=== PATIENT | male | born 1975 | race Caucasian/White ===

== ENCOUNTER 2016-10-12 11:39 | Emergency (ER) | payer SELFPAY ==
[~2016-10-12 11:39] MED LIST: ALTOPREV40 MG PO; BACTRIM DS TAB1 EACH PO; CEPHALEXIN500 MG PO; CETIRIZINE HCL10 MG PO; CLINDAMYCIN HC300 MG PO; CYCLOBENZAPRINE10 MG PO; HYDROCODON-ACE1 EA10 PO; LIDODERM700 MG TOP; METOPROLOL SUCC25 MG PO; NIACIN500 M1 PO; NIASPAN500 MG PO; NORCO 5-325 TA1 EACH PO; OMEPRAZOLE20 MG PO; PRAVACHOL20 MG PO; PRAVASTATIN SOD10 MG; PREDNISONE10 MG PO; PROPRANOLOL HCL40 MG PO; PROTONIX40 MG PO; PSEUDOEPHEDRINE60 MG PO; RANITIDINE HCL150 M1 PO; REGLAN10 MG PO; SINGULAIR10 MG PO; VALIUM5 MG PO; VENTOLIN HFA18 GM INH; VICOPROFEN 2001 EACH
[2016-10-12] MEDS ORDERED: NON-ASA ALLERG1 EACH PO (12:06)
[2016-10-12] MEDS ORDERED: IBUPROFEN200 MG PO (12:06)
[2016-10-12] MEDS ORDERED: NORCO 5-325 TA1 EACH PO (13:57)
== END 2016-10-12 14:15 | disposition home or self-care (01) ==
LOC: ED 11:39
DX: G44.209 Tension-type headache, unspecified, not intractable (principal); I10 Essential (primary) hypertension; I25.2 Old myocardial infarction; Z88.0 Allergy status to penicillin; Z79.899 Other long term (current) drug therapy
CPT/HCPCS: 70450; 80053; 81001; 85025; 96361; 96374; 96375; 99284; J1200; J1885; J2765; J7030

== ENCOUNTER 2017-09-07 02:42 | Emergency (ER) | payer OTHER ==
[~2017-09-07] VITALS: Ht 180.3 cm; Wt 83.9 kg
[~2017-09-07 02:42] MED LIST changes: +IBUPROFEN200 MG PO; +NON-ASA ALLERG1 EACH PO
== END 2017-09-07 03:45 | disposition home or self-care (01) ==
LOC: ED 02:42
DX: L29.9 Pruritus, unspecified (principal); H57.8 Other specified disorders of eye and adnexa; R11.0 Nausea; T45.0X5A Adverse effect of antiallergic and antiemetic drugs, initial encounter; T40.2X5A Adverse effect of other opioids, initial encounter; I25.2 Old myocardial infarction; I10 Essential (primary) hypertension; Z88.0 Allergy status to penicillin
CPT/HCPCS: 99282

== ENCOUNTER 2020-10-24 11:10 | Emergency (ER) | payer OTHER ==
[~2020-10-24] VITALS: Ht 180.3 cm; Wt 83.9 kg
--- OUTSIDE RECORDS SUMMARY | 2020-10-24 11:12 | XMS ---
PreManage Notification: SONYA FR[place] Security Immigration Guard Events No recent Security Events currently on file CRITERIA MET - Group Notification [facility]/13/2017-Current PHONE: [phone] Elise has no Care Guidelines for this patient. EGhanshyam VISIT COUNT (12 MO.) 1 [facility] TOTAL 1 NOTE: Visits indicate total known visits. ED/UCC VISIT TRACKING (12 MO.) 10/24/2020 11:10 [facility] TYPE: Emergency COMPLAINT: - FLU SYMPTOMS INPATIENT VISIT TRACKING (12 MO.) No inpatient visits to display in this time frame [id number]
[2020-10-24] MEDS ORDERED: ONDANSETRON ODT8 MG PO (12:11)
== END 2020-10-24 12:25 | disposition home or self-care (01) ==
LOC: ED 11:10
DX: U07.1 COVID-19 (principal); A08.39 Other viral enteritis; I25.2 Old myocardial infarction; I10 Essential (primary) hypertension; Z88.0 Allergy status to penicillin
CPT/HCPCS: 99283

== ENCOUNTER 2020-10-27 10:35 | Observation (INO) | payer OTHER ==
[~2020-10-27] VITALS: Ht 180.3 cm; Wt 93.9 kg
[~2020-10-27 10:35] MED LIST changes: +ONDANSETRON ODT8 MG PO
--- OUTSIDE RECORDS SUMMARY | 2020-10-27 10:38 | XMS ---
PreManage Notification: SONYA FRANCE [employer] Operations Manager Events No recent Security Events currently on file CRITERIA MET - [facility] - 2 Visits in 30 Days - Group Notification [facility] 10/13/2017-Current PHONE: [phone] Elise has no Care Guidelines for this patient. [place] VISIT COUNT (12 MO.) 2 [facility] TOTAL 2 NOTE: Visits indicate total known visits. ED/UCC VISIT TRACKING (12 MO.) 10/27/2020 10:[address] [facility] [place] TYPE: Emergency COMPLAINT: - COLD SYMPTOMS 10/24/2020 11:[address] [facility] TYPE: Emergency COMPLAINT: - FLU SYMPTOMS INPATIENT VISIT TRACKING (12 MO.) No inpatient visits to display in this time frame [email or web address]
[2020-10-28] MEDS ORDERED: NIGHT TIME COL355 ML PO (12:39)
[2020-10-28] MEDS ORDERED: IBU-200200 MG PO (12:39)
[2020-10-28] MEDS ORDERED: TYLENOL325 MG PO (12:39)
[2020-10-28] MEDS ORDERED: MUCINEX600 MG PO (12:40)
[2020-10-29] MEDS ORDERED: PROMETHAZINE HC25 M1 PO (11:56)
[2020-10-29] MEDS ORDERED: ONDANSETRON ODT4 MG SL (11:57)
[2020-10-29] MEDS ORDERED: PANTOPRAZOLE SO40 MG PO (11:57)
== END 2020-10-29 13:20 | disposition home or self-care (01) ==
LOC: ED 10:35 → MS 10:36
PROVIDERS: ADMIT Student in an Organized Health Care Education/Training Program; ATTEND Student in an Organized Health Care Education/Training Program
DX: U07.1 COVID-19 (principal); K21.9 Gastro-esophageal reflux disease without esophagitis; I10 Essential (primary) hypertension; Z88.0 Allergy status to penicillin
CPT/HCPCS: 80048; 80053; 83690; 83735; 85025; 87040; 96372; 96374; 96375; 96376; 99284-25; C9113; G0378; J1100; J1200; J1650; J1885; J2060; J2405; J2550; J2765; J7030; J7121